=== PATIENT | female | born 1995 ===

== ENCOUNTER 2017-02-10 18:02 | Emergency (ER) | payer OTHER ==
[2017-02-10 18:29] VITALS: BP 101/62
--- NOTE | 2017-02-10 19:45 | ED ---
Skin Complaint - HPI Summary HPI Summary: 21 yr old female with the complaint of rash. Onset yesterday. She states it is getting better. SHe had an outbreak of hives a month ago. Unknown cause then and unknown now as well. She states she has itching and hives now that are generalized but getting better and fading. No airway, or breathing trouble. No other complaints. - History of Current Complaint Chief Complaint: UCRash Time Seen by Provider: 02/10/17 19:32 Stated Complaint: HIVES X 1 DAY Hx Last Menstrual Period: 02/05/17 - Allergy/Home Medications Allergies/Adverse Reactions: Allergies Allergy/AdvReac Type Severity Reaction Status Date / Time Artificial Raspberry Allergy Swelling Uncoded 02/10/17 18:21 Flavoring Of Face,Lips,& Throat Home Medications: Home Medications Acetaminophen PED LIQ* [Tylenol PED LIQ UDC*] 480 mg PO Q6H PRN 02/10/17 [ History Confirmed 02/10/17] Antidepressant That Starts With "P" 1 tab PO BEDTIME 02/10/17 [History] Diphenhydramine HCl [Benadryl Allergy Child 12.5 MG/5 ML LIQ] 37.5 mg PO Q6H PRN 02/10/17 [History Confirmed 02/10/17] PMH/Surg Hx/FS Hx/Imm Hx - Surgical History Surgery Procedure, Year, and Place: B/L PE tubes Infectious Disease History: No Infectious Disease History: Denies: Traveled Outside the [place] in Last 30 Days - Family History Known Family History: Positive: None - Social History Occupation: Employed Full-time Alcohol Use: None Substance Use Type: Reports: None Smoking Status (MU): Never Smoked Tobacco Review of Systems Constitutional: Negative Positive: Other - hives All Other Systems Reviewed And Are Negative: Yes Physical Exam Triage Information Reviewed: Yes Vital Signs On Initial Exam: Initial Vitals Temp Pulse Resp BP Pulse Ox 98.1 F 78 16 101/62 99 02/10/17 18:19 02/10/17 18:19 02/10/17 18:19 02/10/17 18:19 02/10/17 18:19 Vital Signs Reviewed: Yes Appearance: Positive: Well-Appearing, No Pain Distress Skin: Positive: Other - hives that are faint on the back and abdomen. Eyes: Positive: Normal ENT: Positive: Hearing grossly normal, Pharynx normal Respiratory/Lung Sounds: Positive: Clear to Auscultation, Breath Sounds Present Cardiovascular: Positive: RRR. Negative: Murmur Abdomen Description: Positive: Nontender Musculoskeletal: Positive: Strength/ROM Intact Neurological: Positive: Sensory/Motor Intact, Alert, Oriented to Person Place, Time, CN Intact II-III Psychiatric: Positive: Normal - [place] Coma Scale Best Eye Response: 4 - Spontaneous Best Motor Response: 6 - Obeys Commands Best Verbal Response: 5 - Oriented Diagnostics - Vital Signs Vital Signs Temp Pulse Resp BP Pulse Ox 02/10/17 18:19 98.1 F 78 16 101/62 99 - Laboratory Lab Statement: Any lab studies that have been ordered have been reviewed, and results considered in the medical decision making process. Course/Dx - Course Course Of Treatment: 21 yr old female with mild urticaria. Medrol dose pack, and benadryl. FU with PMd - Diagnoses Provider Diagnoses: Urticaria Discharge - Discharge Plan Condition: Good Disposition: HOME Prescriptions: Methylprednisolone [Medrol Dosepak 4 MG*] 4 mg PO .SEE TO INSTRUCTION #1 pkt Patient Education Materials: Urticaria (ED) Referrals: NAHUN Hernandez [Primary Care Provider] - 4 Days
== END 2017-02-10 19:53 | disposition home or self-care (01) ==
LOC: UCCORT 18:02
DX: L50.9 Urticaria, unspecified (principal)
CPT/HCPCS: 99212; G0463

== ENCOUNTER 2017-10-09 10:37 | Emergency (ER) | payer OTHER ==
[2017-10-09 11:25] VITALS: BP 117/62
--- NOTE | 2017-10-09 11:26 | UC ---
UC General HPI - HPI Summary HPI Summary: Patient presents to urgent care reporting she's had diarrhea daily for the last 5-6 months. Patient states she typically goes 4-5 times a day. Patient states sometimes is watery and sometimes is very soft. Mostly brown/ No blood. Patient states that intermittently black but only but only when she takes Pepto- Bismol. Patient has altered her diet to decrease water intake, decrease fiber including Broccoli, stopped taking protein shakes without any change in her bowel movements. Patient denies any abdominal pain. States once in a while feels bloated but not daily. No nausea or vomiting. No dysuria or hematuria. No black pain. Patient states she has not contacted her PCP and she does have one at [facility] in [place]. Patient also states she received the depo shots and is due for a repeat shot on 10/11. Patient states she's had her period for approximately one month. Patient's not concerned about . Patient does not want to continue with the depo - stating she took to treat acne ,but it hasn't made a difference. Pt also reports she had a hemorrhoid and teated with anusol with resolution. Pt reports not has "something" that comes out with BM and slowly retracts. non tender. would like evaluated. No travel No abx. no sick contact. No family h/o IBS, crohns or similar. Pt is on medication for anxiety and depression - states no change in stool or symptoms related to medication dosing, timing. Pt denies anything inserted into rectum Pt's medications reviewed this visit - History of Current Complaint Chief Complaint: UCGI Stated Complaint: DIARRHEA Time Seen by Provider: 10/09/17 11:24 Hx Obtained From: Patient Hx Last Menstrual Period: Depo-Provera Onset/Duration: Lasting Weeks Onset Severity: Mild Current Severity: None Pain Intensity: 0 - Allergy/Home Medications Allergies/Adverse Reactions: Allergies Allergy/AdvReac Type Severity Reaction Status Date / Time Artificial Raspberry Allergy Swelling Uncoded 10/09/17 11:19 Flavoring Of Face,Lips,& Throat Home Medications: Home Medications QUEtiapine TAB* [Seroquel 25 MG TAB*] 12.5 mg PO BEDTIME 10/09/17 [History Confirmed 10/09/17] busPIRone TAB* [Buspar TAB*] 10 mg PO DAILY PRN 10/09/17 [History Confirmed 06/23] medroxyPROGESTERone ACETATE* [DEPO-Provera] 150 mg IM SEE INSTRUCTIONS 10/09/17 [History Confirmed 10/09/17] PMH/Surg Hx/FS Hx/Imm Hx Previously Healthy: Yes Other GI/ History: chronic diarrhea Psychological History: Anxiety, Depression - Surgical History Surgical History: Yes Surgery Procedure, Year, and Place: B/L PE tubes - Family History Known Family History: Positive: None, Other - no family hx of IBD/Crohn's - Social History Occupation: Employed Full-time Lives: With Family Alcohol Use: Rare Substance Use Type: None Smoking Status (MU): Never Smoked Tobacco - Immunization History Most Recent Influenza Vaccination: Not the Season Vaccination Up to Date: Yes Review of Systems Constitutional: Negative Gastrointestinal: Diarrhea All Other Systems Reviewed And Are Negative: Yes Physical Exam - Summary Physical Exam Summary: Vital Signs Reviewed: Yes A+Ox3, no distress Eyes: Conjunctiva Clear, LAST. EOM intact and full ENT: Hearing grossly normal TM x 2 clear, mmoist, uvula midline, no exudate, no erythema Neck: Positive: Supple Respiratory: Positive: No respiratory distress, No accessory muscle use + CTA throughout no w/r Cardiovascular: RRR nl s1, s2 no m/r CBT <2 sec abd soft + BS nt/nd no guarding, no distension rectal exam with SALINA Presley in room - pt small flesh colored skin tab at rectal opening. No hemorrhoid. no bleeding. no discomfort or mass noted with exam. scan stool in vault. no fluctuance Musculoskeletal Exam: POMPA x 4 without difficulty Strength Intact, ROM Intact Neurological: Positive: Alert, + sensation throughout Psychological: Positive: Normal Response To Family Skin: Positive: no rash, no ecchymosis Triage Information Reviewed: Yes Vital Signs: Initial Vital Signs Temp 99.1 F 10/09/17 11:10 Pulse 62 10/09/17 11:10 Resp 16 10/09/17 11:10 BP 117/62 10/09/17 11:10 Pulse Ox 100 10/09/17 11:10 Course/Dx - Course Course Of Treatment: Patient presents with 6 months of diarrhea. Patient states she has diarrhea 5-6 times a day. Patient has taken Pepto-Bismol without any change. Patient has done dietary changes without any change in bowel movements. Patient does not feel bloated. No fevers or chills. No abdominal pain. No nausea vomiting. Patient states she is unable to get into her doctor easily so she came here today. Patient without a travel, sick contacts, or family history of similar. On exam patient's abdomen is soft. Patient vital signs are normal concerning. Rectal exam shows a small fleshy skin tag but no hemorrhoid no concern for fissure or rectal bleeding or rectal abscess. Recommend patient states Imodium. Patient sent home with a stool collection kit. Patient recommended to follow up with both GI as well as her PCP. Okay for patient Imodium as concern for infectious causes very low. Patient states understanding and agreement. Return precautions discussed. - Differential Dx - Multi-Symptom Provider Diagnoses: diarrhea Discharge - Sign-Out/Discharge Documenting (check all that apply): Patient Departure - Discharge Plan Condition: Stable Disposition: HOME Patient Education Materials: Chronic Diarrhea (ED) Referrals: Jignesh Leyva MD [Primary Care Provider] - Humphrey Stoddard MD [Medical Doctor] - Additional Instructions: - stay well hydrated. Avoid excess caffeine and alcohol - Return your stool sample in container provider - bring yellow lab slip with your when you return - Okay to try Immodium daily to help with your symptoms - your blood work with be sent for testing -if you have any concerning results a care nut steamer will contact your - it is recommended you schedule a follow-up appointment with your primary doctor - call on Wednesday to schedule. You have also been given referral to the GI specialist - call to schedule - If you develop uncontrolled pain, vomiting, bloating, rectal bleeding, fevers or any other concerns it is recommended you go to the emergency department for further evaluation. - Keep your appointment with your sheet sewer on 10/11/17 as scheduled - Billing Disposition and Condition Condition: STABLE Disposition: Home
[2017-10-09 14:35] LABS: ABS Basophils 0 10^3/ul (0-0.2); ABS Eosinophils 0.2 10^3/ul (0-0.6); ABS Lymphocytes 1.6 10^3/ul (1.0-4.8); ABS Monocytes 0.4 10^3/ul (0-0.8); ABS Neutrophils 3.7 10^3/ul (1.5-7.7); ABS Nucleated RBC 0 10^3/ul; Eosinophil % 3.5 % (0-6); Hematocrit 40 % (35-47); Lymphocyte % 26.8 % (25-47); Mean Corpuscular HGB Conc 33 g/dl (31-36); Mean Corpuscular Hemoglobin 29 pg (27-31); Mean Corpuscular Volume 88 fL (80-97); Mean Platelet Volume 10.4 um3 (7.4-10.4); Nucleated Red Blood Cells % 0; Platelet Count 161 10^3/ul (150-450); Red Blood Count 4.47 10^6/ul (4.00-5.40); Red Cell Distribution Width 13 % (10.5-15); White Blood Count 5.8 10^3/ul (3.5-10.8)
--- NOTE | 2017-10-10 08:25 | UC ---
- Progress Note Progress Note: CBC/cmp reviewed normal and non concerning no change 10/10/17 8:25 ljj Discharge - Sign-Out/Discharge Documenting (check all that apply): Patient Departure - Discharge Plan Condition: Stable Disposition: HOME Patient Education Materials: Chronic Diarrhea (ED) Referrals: Jignesh Leyva MD [Primary Care Provider] - Humphrey Stoddard MD [Medical Doctor] - Additional Instructions: - stay well hydrated. Avoid excess caffeine and alcohol - Return your stool sample in container provider - bring yellow lab slip with your when you return - Okay to try Immodium daily to help with your symptoms - your blood work with be sent for testing -if you have any concerning results a care java development team lead will contact your - it is recommended you schedule a follow-up appointment with your primary doctor - call on Wednesday to schedule. You have also been given referral to the GI specialist - call to schedule - If you develop uncontrolled pain, vomiting, bloating, rectal bleeding, fevers or any other concerns it is recommended you go to the emergency department for further evaluation. - Keep your appointment with your information assurance manager on 10/11/17 as scheduled - Billing Disposition and Condition Condition: STABLE Disposition: Home
== END 2017-10-09 12:36 | disposition home or self-care (01) ==
LOC: UCCORT 10:37
DX: R19.7 Diarrhea, unspecified (principal); F41.8 Other specified anxiety disorders
CPT/HCPCS: 36415; 80053; 82272; 83630; 83690; 85025; 87045; 87046; 87328; 87329; 87899; 99212; G0463